=== PATIENT | male | born 1935 | race Caucasian/White ===

== ENCOUNTER 2022-11-27 07:55 | Day surgery (SDC) | payer MEDICARE ==
[2022-11-25 12:06] VITALS: BP 145/77
[2022-11-25 12:06] LABS: BASOPHILS % (AUTO) 0.8 % (0.0-5.0); EOSINOPHILS % (AUTO) 5.4 % (0.0-8.0); HEMATOCRIT 30.5 % (42-54); LYMPHOCYTES % (AUTO) 41.1 % (21.0-51.0); MEAN CORPUSCULAR HEMOGLOBIN 29.9 pg (27.0-33.0); MEAN CORPUSCULAR HGB CONC 32.1 g/dL (32.0-36.0); MONOCYTES % (AUTO) 8.5 % (3.0-13.0); PLATELET COUNT (AUTO) 281 K/uL (130-400); RED BLOOD CELL COUNT(AUTO) 3.28 MIL/uL (4.50-6.20); WHITE BLOOD COUNT (AUTO) 6.3 K/uL (4.8-10.8)
[2022-11-25 12:16] LABS: CREATININE 1.1 mg/dL (0.5-1.5); POTASSIUM 4.3 mmol/L (3.5-5.1)
[2022-11-27] VITALS (18 sets, daily range): BP systolic 114–144; BP diastolic 49–70
[~2022-11-27] VITALS: Ht 177.8 cm; Wt 59.7 kg
[~2022-11-27 07:55] MED LIST: CEFTRIAXONE 1G VIAL IVPB SCH
[2022-11-27] MEDS ORDERED: FINA5TAB41 PO (09:52)
[2022-11-27] MEDS ORDERED: [UNRECOGNIZED DRUG - OTHER] PO (09:52)
[2022-11-27] MEDS ORDERED: METO25TA6 PO (09:52)
[2022-11-27] MEDS ORDERED: TAMS-1 PO (09:52)
[2022-11-27] MEDS ORDERED: EYE PO (09:52)
[2022-11-27] MEDS ORDERED: LIDOCAINE HCL MPF 1% 5ML VIAL ONE (10:42)
[2022-11-27] MEDS ORDERED: DEXAMETHASONE SOD PHOSPHATE 10MG/ML 1ML VIAL ONE (10:42)
[2022-11-27] MEDS ORDERED: PROPOFOL 10 MG/ML 20ML VIAL IV ONE (10:43)
[2022-11-27] MEDS ORDERED: FENTANYL CITRATE PF 50 MCG/1 ML 2ML VIAL ONE (10:43)
[2022-11-27] MEDS ORDERED: ONDANSETRON 4MG INJ ONE (10:43)
[2022-11-27] MEDS ORDERED: CEFTRIAXONE 1G VIAL IVPB ONE (11:09)
[2022-11-27] MEDS ORDERED: EPHEDRINE SULFATE 50 MG/ML AMPULE ONE (11:14)
[2022-11-27] MEDS ORDERED: PHENAZOPYRIDINE HCL 200 MG TABLET ONE (13:24)
== END 2022-11-27 14:15 | disposition home or self-care (01) ==
LOC: DAH 07:55
PROVIDERS: ATTEND Urology
DX: N40.1 Benign prostatic hyperplasia with lower urinary tract symptoms (principal); Z20.822 Contact with and (suspected) exposure to COVID-19; R33.8 Other retention of urine; N13.30 Unspecified hydronephrosis; N32.89 Other specified disorders of bladder; I10 Essential (primary) hypertension; Z98.890 Other specified postprocedural states; Z79.899 Other long term (current) drug therapy
CPT/HCPCS: 80048; 85025; 87426; 36415; 93005; 52648; A6260; A4663; J7120; A4354; A4340; J3010; J1100; J3490 ×2; J0696 ×2; J2704; J2405; A4358; A4215; A4223; A4222; A4221; A4600; A4510